=== PATIENT | female | born 1985 | race Caucasian/White ===

== ENCOUNTER 2016-10-19 18:54 | Emergency (ER) | payer OTHER ==
[~2016-10-19] VITALS: Ht 157.5 cm; Wt 55.3 kg
[~2016-10-19 18:54] MED LIST: IMITREX25 MG PO; MACROBID100 MG ORAL
[2016-10-19 19:58] LABS: APPEARANCE,URINE CLEAR; KETONES,URINE NEGATIVE (NEGATIVE); LEUKOCYTE ESTERASE ,URINE NEGATIVE (NEGATIVE); NITRITE,URINE NEGATIVE (NEGATIVE); PH,URINE 8 (4.5-8.0); PROTEIN,URINE NEGATIVE (NEGATIVE); UROBILINOGEN,URINE NORMAL MG/DL (0.0-1.0)
[2016-10-19 20:00] LABS: BASOPHILS % (AUTO) 1.7 % (0.0-2.0); EOSINOPHILS % (AUTO) 0.7 % (0.0-3.0); LYMPHOCYTES % (AUTO) 29.3 % (20.0-45.0); MEAN CORPUSCULAR HEMOGLOBIN 31.5 PG (27.0-31.0); MEAN CORPUSCULAR HGB CONC 35.3 G/DL (32.0-36.0); MEAN CORPUSCULAR VOLUME 89 FL (80-99); MEAN PLATELET VOLUME 10.2 FL (6.5-10.1); MONOCYTES % (AUTO) 7.5 % (1.0-10.0); NEUTROPHILS % (AUTO) 60.8 % (45.0-75.0); PLATELET COUNT 150 K/UL (150-450); RED BLOOD COUNT 3.88 M/UL (4.20-5.40); RED CELL DISTRIBUTION WIDTH 11.2 % (11.6-14.8); WHITE BLOOD COUNT 5.5 K/UL (4.8-10.8)
[2016-10-19 20:05] LABS: BACTERIA,URINE FEW /HPF; SQUAMOUS EPITHELIAL CELL,UR FEW /LPF (NONE/OCC); WBC,URINE 0-2 /HPF (0 - 2)
[2016-10-19 20:09] LABS: ALANINE AMINOTRANSFERASE 12 U/L (3-33); ALBUMIN/GLOBULIN RATIO 1.9 (1.0-2.7); ANION GAP 16 (5-15); ASPARTATE AMINO TRANSFERASE 23 U/L (5-40); CARBON DIOXIDE 25 mEQ/L (20-30); CHLORIDE 92 mEQ/L (98-107); CREATININE 0.7 mg/dL (0.5-0.9); GLOMERULAR FILTRATION RATE > 60 mL/min (>60); HEMOLYSIS 28; LIPASE 31 U/L (< 60); POTASSIUM 3.2 mEQ/L (3.4-4.9); SODIUM 133 mEQ/L (135-145); TOTAL PROTEIN 6.7 g/dL (6.6-8.7)
[2016-10-19 20:36] VITALS: BP 118/76
[2016-10-19] MEDS ORDERED: IBUPROFEN600 MG ORAL (22:14)
[2016-10-19] MEDS ORDERED: ZOFRAN4 M3 ORAL (22:14)
[2016-10-19] MEDS ORDERED: MIRALAX119 GM PO (22:14)
[2016-10-19 22:26] VITALS: BP 125/76
--- NOTE | 2016-10-20 09:31 | Diagnostic Imaging Report ---
Indications: Right-sided abdominal pain and nausea for 2 months Technique: Continuous helical CT imaging of the abdomen and pelvis was performed with automatic exposure control following administration of nonionic IV contrast only, on a Siemens sensation [address] scanner. Axial, coronal, sagittal images were reconstructed at 5 mm slice thickness. No oral contrast was administered per requesting physician's order, despite no contraindications listed in either submitted clinical data or tech note.. CTDI volume(s): 15 mGy Total DLP: 711 mGy-cm Findings: Comparison: None Lack of oral contrast limits evaluation of gastrointestinal tract, nondilated throughout. Appendix not identified. Portions of left side of colon poorly distended, further limiting evaluation.. No obvious mural thickening, adjacent stranding, extraluminal gas or fluid collections identified, aside from minimal free fluid in the pelvic cul-de-sac. Gallbladder contracted, limiting evaluation. 1 cm angular focus of decreased attenuation in hepatic segment IVb, adjacent to the left intersegmental fissure. Pancreas, spleen, adrenal glands, kidneys, unopacified ureters and urinary bladder, uterus, bilateral adnexal regions, vascular structures, retroperitoneum, mesentery, remainder visualized abdominopelvic anatomy unremarkable. Lung bases and adjacent pleural surfaces clear. No focal skeletal abnormalities are identified. IMPRESSION: Minimal pelvic free fluid, nonspecific, may be physiologic. Nonvisualization of appendix. No secondary signs of acute appendicitis. No other evidence of acute abdominopelvic disease, with limitation as described. Subtle but potentially significant abnormalities the gastrointestinal tract may be missed. Repeat CT scan with full oral and IV contrast preparation recommended for more complete evaluation, as clinically indicated This correlates with Dr. Curran's preliminary report.
--- NOTE | 2016-10-20 09:37 | Diagnostic Imaging Report ---
Indications: Pelvic pain for 2 weeks, LMP 09/18/16 Technique: Transabdominal and transvaginal real-time grayscale and duplex Doppler imaging of the pelvis was performed. Findings: Comparison: None Uterus measures 8.5 x 5.3 x 4cm. It demonstrates a questionable circumscribed area of decreased echogenicity in fundal myometrium, 2 cm diameter. The endometrial complex measures 4 mm in diameter. It is unremarkable in appearance without obvious focal abnormality. Cervix unremarkable.. No free fluid is present in the cul-de-sac. Right ovary measures 2.5 x 3.4 x 1.7 cm. It contains multiple peripheral follicles. Duplex Doppler imaging demonstrates normal blood flow. No extra-ovarian abnormality is seen. Left ovary measures 3.9 x 2.7 x 1.9 cm. It contains multiple peripheral follicles. Duplex Doppler imaging demonstrates normal blood flow. No extra-ovarian abnormality is seen. IMPRESSION: Suggestion of uterine fundal fibroid Unremarkable ovaries
--- NOTE | 2016-10-25 20:51 | Emergency Room Report ---
History of Present Illness General Chief Complaint: Abdominal Pain Source: Patient Present Illness HPI The patient is a 31-year-old female who denies any medical history presenting for right lower abdominal pain which began 2 days prior. Pain is described as a 5/10 dull ache and does not radiate. No known provoking or relieving factors. She also admits to nausea but denies vomiting or diarrhea. She was seen by her PMD yesterday and told to come to the ER for evaluation. She denies any other symptoms including F, chills, flank pain, dysuria, hematuria, constipation Allergies: Coded Allergies: METOCLOPRAMIDE (Verified Allergy, Unknown, 07/13/15) Patient History Past Medical History: see triage record Pertinent Family History: none Last Menstrual Period: A MONTH AGO Now: No : 0 Para: 0 Reviewed Nursing Documentation: PMH: Agreed, PSxH: Agreed Nursing Documentation-PMH Hx Cardiac Problems: No - ANEMIA Review of Systems All Other Systems: negative except mentioned in HPI Physical Exam Vital Signs Date Time Temp Pulse Resp B/P Pulse Ox O2 Delivery O2 Flow Rate FiO2 10/19/16 19:11 97.7 79 18 115/78 96 Room Air Sp02 EP Interpretation: reviewed, normal General Appearance: no apparent distress, alert, GCS 15, non-toxic Head: normocephalic, atraumatic Eyes: bilateral eye PERRL, bilateral eye normal inspection ENT: hearing grossly normal, normal pharynx, no angioedema, normal voice Neck: full range of motion, supple/symm/no masses Respiratory: chest non-tender, lungs clear, normal breath sounds, speaking full sentences Cardiovascular #1: regular rate, rhythm, no edema Gastrointestinal: normal bowel sounds, soft, no mass, tenderness - RLQ Genitourinary: normal inspection, no CVA tenderness Musculoskeletal: back normal, gait/station normal, normal range of motion, non- tender Neurologic: alert, oriented x3, responsive, motor strength/tone normal, sensory intact, normal gait, speech normal Psychiatric: judgement/insight normal, memory normal, mood/affect normal, no suicidal/homicidal ideation Skin: normal color, no rash, warm/dry, well hydrated Lymphatic: no adenopathy Medical Decision Making PA Attestation Dr. Mccartney is my supervising physician. Patient management was discussed with my supervising physician Diagnostic Impression: Primary Impression: Constipation Qualified Codes: K59.00 - Constipation, unspecified Additional Impression: Uterine fibroid Qualified Codes: D25.9 - Leiomyoma of uterus, unspecified ER Course The patient is a 31-year-old female who denies any medical history presenting for right lower abdominal pain Differential diagnoses considered include but not limited to gastritis, pancreatitis, appendicitis, , UTI PE: Vitals WNL. NAD. Abdomen: Normal appearance. Non distended. No ecchymosis. Normal BS. + TTP to RLQ. No McBurney point tenderness. No guarding. No CVA tenderness Lab work is unremarkable. Pelvic ultrasound shows uterine fibroid. Otherwise unremarkable CT of the abdomen and pelvis also shows uterine fibroid. Findings consistent with constipation are seen. No signs of appendicitis The patient will be discharged home and is given ER precautions Labs Test 10/19/16 19:40 10/19/16 19:47 Urine Color Pale yellow Urine Appearance Clear Urine pH 8 (4.5-8.0) Urine Specific [place] 1.015 (1.005-1.035) Urine Protein Negative (NEGATIVE) Urine Glucose (UA) Negative (NEGATIVE) Urine Ketones Negative (NEGATIVE) Urine Occult Blood 1+ (NEGATIVE) Urine Nitrite Negative (NEGATIVE) Urine Bilirubin Negative (NEGATIVE) Urine Urobilinogen Normal MG/DL (0.0-1.0) Urine Leukocyte Esterase Negative (NEGATIVE) Urine RBC 2-4 /HPF (0 - 2) Urine WBC 0-2 /HPF (0 - 2) Urine Squamous Epithelial Cells Few /LPF (NONE/OCC) Urine Bacteria Few /HPF (NONE) Urine HCG, Qualitative Negative White Blood Count 5.5 K/UL (4.8-10.8) Red Blood Count 3.88 M/UL (4.20-5.40) Hemoglobin 12.2 G/DL (12.0-16.0) Hematocrit 34.6 % (37.0-47.0) Mean Corpuscular Volume 89 FL (80-99) Mean Corpuscular Hemoglobin 31.5 PG (27.0-31.0) Mean Corpuscular Hemoglobin Concent 35.3 G/DL (32.0-36.0) Red Cell Distribution Width 11.2 % (11.6-14.8) Platelet Count 150 K/UL (150-450) Mean Platelet Volume 10.2 FL (6.5-10.1) Neutrophils (%) (Auto) 60.8 % (45.0-75.0) Lymphocytes (%) (Auto) 29.3 % (20.0-45.0) Monocytes (%) (Auto) 7.5 % (1.0-10.0) Eosinophils (%) (Auto) 0.7 % (0.0-3.0) Basophils (%) (Auto) 1.7 % (0.0-2.0) Sodium Level 133 mEQ/L (135-145) Potassium Level 3.2 mEQ/L (3.4-4.9) Chloride Level 92 mEQ/L (98-107) Carbon Dioxide Level 25 mEQ/L (20-30) Anion Gap 16 (5-15) Blood Urea Nitrogen 10 mg/dL (7-23) Creatinine 0.7 mg/dL (0.5-0.9) Estimat Glomerular Filtration Rate > 60 mL/min (>60) Glucose Level 94 mg/dL (74-106) Calcium Level 9.0 mg/dL (8.6-10.2) Total Bilirubin 0.2 mg/dL (0.0-1.2) Aspartate Amino Transf (AST/SGOT) 23 U/L (5-40) Alanine Aminotransferase (ALT/SGPT) 12 U/L (3-33) Alkaline Phosphatase 39 U/L (35-104) Total Protein 6.7 g/dL (6.6-8.7) Albumin 4.4 g/dL (3.5-5.2) Globulin 2.3 g/dL Albumin/Globulin Ratio 1.9 (1.0-2.7) Lipase 31 U/L (< 60) Lab Results Impression CBC unremarkable. No leukocytosis CMP shows mild hypokalemia. Otherwise unremarkable. UA: No signs of infection. Urine preg: neg CT/MRI/US Diagnostic Results CT/MRI/US Diagnostic Results #1: Imaging Test Ordered: CT abd/pelvis Impression Minimal pelvic free fluid, nonspecific, may be physiologic. Nonvisualization of appendix. No secondary signs of acute appendicitis. No other evidence of acute abdominopelvic disease, with limitation as described. CT/MRI/US Diagnostic Results #2: Imaging Test Ordered: uterine fibroids Impression Suggestion of uterine fundal fibroid Unremarkable ovaries Last Vital Signs Date Time Temp Pulse Resp B/P Pulse Ox O2 Delivery O2 Flow Rate FiO2 10/19/16 22:26 97.6 78 16 125/76 98 Room Air Status: improved Disposition: HOME, SELF-CARE Condition: Improved Scripts Polyethylene Glycol 3350 (MIRALAX) 119 Gm Powder 17 GM PO DAILY, #119 GM Prov: KYLE QUIJANO.A. 10/19/16 Ondansetron* (ZOFRAN*) 4 Mg Tablet 4 MG ORAL Q6H Y for Nausea & Vomiting, #15 TAB Prov: KYLE QUIJANO.A. 10/19/16 Ibuprofen* (MOTRIN*) 600 Mg Tablet 600 MG ORAL Q8H Y for For Pain, #30 TAB 0 Refills Prov: KYLE [email or web address].ANataliya 10/19/16 Patient Instructions: Abdominal Pain, Adult Additional Instructions: I discussed my findings with the patient. All questions and concerns have been answered. Treatment and medication compliance have been addressed. I advised the patient that they need to follow up with PMD in 3-5 days. Return to ED if symptoms worsen, new symptoms arise, or if needed for any reason. Patient verbalized understanding of discharge instructions. KYLE QUIJANO Oct 25, 2016 20:51
== END 2016-10-19 22:29 | disposition home or self-care (01) ==
LOC: EMR 19:55
DX: K59.00 Constipation, unspecified (principal); D25.9 Leiomyoma of uterus, unspecified; R11.0 Nausea; Z88.8 Allergy status to other drugs, medicaments and biological substances
CPT/HCPCS: 36415; 74177; 76856; 80053; 81003; 81025; 83690; 85025; 96374; 99284; Q9967; J2405; J8499